=== PATIENT | female | born 1985 | race American Indian/Alaskan Native ===

== ENCOUNTER 2016-06-24 09:25 | Emergency (ER) | payer SELFPAY ==
[2016-06-24] MEDS ORDERED: NACL 0.9% 1000 ML 1,000 ML ONE ×2 (09:43→10:53)
[2016-06-24] MEDS ORDERED: NACL 0.9% 1000 ML 1,000 ML IV ONE (09:43)
[2016-06-24] MEDS ORDERED: NACL 0.9% 1000 ML IV ONE ×2 (10:18→12:32)
[2016-06-24 11:16] LABS: Bilirubin,Urine NEG (Negative); Blood,Urine SM (Negative); Ketones,Urine 20 mg/dL (Negative); Leukocyte Esterase,Urine TR (Negative); Nitrite,Urine NEG (Negative); Protein,Urine <15 mg/dL mg/dL (Negative); Urobilinogen,Urine < 2.0 mg/dL (<2.0)
[2016-06-24 11:27] LABS: Basophils % (Auto) 0.6 % (0.0-1.8); Eosinophils % (Auto) 1.1 % (0.0-4.3); Mean Corpuscular HGB Conc 30 % (30-34); Platelet Count 222 K/mm3 (140-440); Red Blood Count 5.82 M/mm3 (3.65-5.03); Red Cell Distribution Width 15.9 % (13.2-15.2); White Blood Count 11.3 K/mm3 (4.5-11.0)
[2016-06-24 11:31] LABS: Hematocrit 35.7 % (30.3-42.9); Hemoglobin 10.7 gm/dl (10.1-14.3)
[2016-06-24 11:32] LABS: Mean Corpuscular Hemoglobin 18 pg (28-32); Mean Corpuscular Volume 61 fl (79-97)
[2016-06-24 12:35] LABS: Anion Gap 20 mmol/L; BUN/Creatinine Ratio 28.57; Blood Urea Nitrogen 20 mg/dL (7-17); Calcium 8.4 mg/dL (8.4-10.2); Carbon Dioxide 20 mmol/L (22-30); Chloride 99.9 mmol/L (98-107); Glucose 446 mg/dL (65-100); Potassium 4.6 mmol/L (3.6-5.0); Sodium 135 mmol/L (137-145)
--- NOTE | 2016-06-24 13:05 | Emergency Department Report ---
HPI - General Chief Complaint: Hyperglycemia Time Seen by Provider: 06/24/16 10:04 - HPI HPI: Chief complaint: Elevated blood sugar HPI: Patient is a 30-year-old female with a previous history of insulin- dependent diabetes he states after losing a lot of weight and she was able to go off medications completely. Patient states over the last week she's had increased thirst and increased urination over the last 2 days her blood sugars have been reading high in the 200 and 300s. Today she states it read higher than 500. Patient denies chest pain or abdominal pain, nausea, vomiting, diarrhea, dysuria or fever. Mode of arrival: EMS Source: Patient Began: Over the last week Duration: See above Context: See above Quality: Dull headache Severity: Mild Improved with: Nothing Worsened with: Nothing Associated signs and symptoms: Generalized weakness ED Past Medical Hx - Past Medical History Previous Medical History?: Yes Hx Diabetes: Yes - Surgical History Additional Surgical History: Tubal ligation - Medications Home Medications: Home Medications Medication Instructions Recorded Confirmed Last Taken Type Insulin Glargine [Lantus] 15 units SQ QHS #1 vial 06/24/16 Unknown Rx Insulin Regular, Human [HumuLIN R] See Protocol IV ACHS #1 vial 06/24/16 Unknown Rx metFORMIN [Glucophage] 500 mg PO BID #60 tablet 06/24/16 Unknown Rx ED Review of Systems ROS: Stated complaint: HYPERGLYCEMIC Other details as noted in HPI ROS Constitutional: No fever ENT: No uri symptoms Cardiovascular: No chest pain Respiratory: No sob or cough GI: No nausea vomiting or diarrhea : No dysuria Skin: No rash Neuro: No focal weakness or numbness Psych: No depression Floyd/lymph: No edema Physical Exam - Physical Exam Vital Signs: Vital Signs 06/24/16 09:26 Temperature 98.1 F Pulse Rate 98 H Respiratory 16 Rate Blood Pressure 124/70 O2 Sat by Pulse 99 Oximetry Physical Exam: GENERAL: The patient is well-developed well-nourished . HEENT: Normocephalic. Atraumatic. Extraocular motions are intact. Patient has moist mucous membranes. NECK: Supple. No meningitic signs are noted. There is no adenopathy noted. CHEST/LUNGS: Clear to auscultation. There is no respiratory distress noted. HEART/CARDIOVASCULAR: Regular. There is no tachycardia. There is no gallop rub or murmur. ABDOMEN: Abdomen is soft, nontender. Patient has normal bowel sounds. There is no abdominal distention. SKIN: There is no rash. There is no edema. There is no diaphoresis. NEURO: The patient is awake, alert, and oriented. The patient is cooperative. The patient has no focal neurologic deficits. The patient has normal speech. MUSCULOSKELETAL: There is no tenderness or deformity. There is no limitation range of motion. There is no evidence of acute injury. ED Course Vital Signs 06/24/16 09:26 Temperature 98.1 F Pulse Rate 98 H Respiratory 16 Rate Blood Pressure 124/70 O2 Sat by Pulse 99 Oximetry - Reevaluation(s) Reevaluation #1: 06/24/16 10:18 Patient given IV fluids and will be given IV insulin. 06/24/16 14:28 Patient given a total of 3 L of normal saline and 10 units of regular insulin IV and improvement of her blood sugar. ED Medical Decision Making - Lab Data Result diagrams: 06/24/16 11:12 06/24/16 11:12 Laboratory Tests 06/24/16 06/24/16 11:12 12:30 VBG pH 7.337 POC Glucose 339 H Critical care attestation.: If time is entered above; I have spent that time in minutes in the direct care of this critically ill patient, excluding procedure time. ED Disposition Clinical Impression: Hyperglycemia Disposition: DISCHARGED TO HOME OR SELFCARE Is pt being admited?: No Does the pt Need Aspirin: No Condition: Stable Instructions: Diabetic Hyperglycemia (ED) Prescriptions: Insulin Glargine [Lantus] 15 units SQ QHS #1 vial Insulin Regular, Human [HumuLIN R] See Protocol IV ACHS #1 vial metFORMIN [Glucophage] 500 mg PO BID #60 tablet Referrals: KATIE MIRELES MD [Staff Physician] - 3-5 Days (Dr. Mireles is a primary care physician) KENIA JACOB MD [Staff Physician] - 3-5 Days (Dr. Jacob is a primary care physician.) Time of Disposition: 14:41
[2016-06-24] MEDS ORDERED: TYLENOL ONE (15:55)
[2016-06-24] MEDS ORDERED: TYLENOL PO ONE (16:10)
[2016-06-24 16:20] VITALS: BP 142/71
[2016-06-30 06:03] LABS: B-Hydroxybutyrate 1.4 mg/dL (0.2-2.8)
== END 2016-06-24 16:19 | disposition home or self-care (01) ==
LOC: ED 09:25
DX: E11.65 Type 2 diabetes mellitus with hyperglycemia (principal); Z79.4 Long term (current) use of insulin; Z98.51 Tubal ligation status
CPT/HCPCS: 36415; 80048; 81001; 81025; 82010; 82805; 82962; 85025; 96361; 96374; 96376; 99284; J7030; J1815

== ENCOUNTER 2016-07-03 14:32 | Emergency (ER) | payer SELFPAY ==
[2016-07-03] MEDS ORDERED: D50W (25GM) IV ONE ×2 (14:56→15:08)
[2016-07-03 15:34] LABS: Basophils % (Auto) 1.1 % (0.0-1.8); Eosinophils % (Auto) 2.1 % (0.0-4.3); Mean Corpuscular HGB Conc 30 % (30-34); Platelet Count 324 K/mm3 (140-440); Red Blood Count 6.14 M/mm3 (3.65-5.03); Red Cell Distribution Width 16.3 % (13.2-15.2); White Blood Count 10.4 K/mm3 (4.5-11.0)
[2016-07-03 15:37] LABS: Hematocrit 37.1 % (30.3-42.9); Hemoglobin 11.2 gm/dl (10.1-14.3); Mean Corpuscular Volume 60 fl (79-97)
[2016-07-03 15:38] LABS: Mean Corpuscular Hemoglobin 18 pg (28-32)
[2016-07-03 16:20] LABS: Anion Gap TNR mmol/L; BUN/Creatinine Ratio TNR; Blood Urea Nitrogen TNR mg/dL (7-17); Carbon Dioxide TNR mmol/L (22-30); Chloride TNR mmol/L (98-107); Glucose TNR mg/dL (65-100); Potassium TNR mmol/L (3.6-5.0); Sodium TNR mmol/L (137-145)
[2016-07-03 16:21] LABS: Calcium TNR mg/dL (8.4-10.2)
--- NOTE | 2016-07-03 18:04 | Emergency Department Report ---
HPI - General Chief Complaint: Hyperglycemia Time Seen by Provider: 07/03/16 17:49 - HPI HPI: This is a 30-year-old Afro-[place]alese female who presents to the emergency department with complaint of erratic blood sugar. The patient is a diabetic on both insulin and metformin. This morning she took her regular insulin at 20 units based on a sliding scale based on a fasting blood sugar of 265 and then ate breakfast. She did not have her metformin this morning. The patient presents with a blood sugar of 47 in triage and was given 1 amp of D50. Patient says that her blood sugar has been elevated over the past week. It does cause some blurry vision, polyuria and some intermittent frontal headaches. She is taking some ibuprofen in the past for her headache with some relief. She denies any chest pain, shortness of breath, back pain. She does not have a primary care doctor. No recent travel or sick contacts at home. ED Past Medical Hx - Past Medical History Previous Medical History?: Yes Hx Diabetes: Yes - Surgical History Past Surgical History?: Yes Additional Surgical History: Tubal ligation - Social History Smoking Status: Never Smoker Substance Use Type: Prescribed - Medications Home Medications: Home Medications Medication Instructions Recorded Confirmed Last Taken Type Insulin Regular, Human [HumuLIN R] See Protocol IV ACHS #1 vial 06/24/16 Unknown Rx metFORMIN [Glucophage] 500 mg PO BID #60 tablet 06/24/16 07/03/16 Unknown Rx ED Review of Systems ROS: Stated complaint: HYPERGLYCEMIA Other details as noted in HPI Comment: All other systems reviewed and negative Constitutional: denies: chills, fever Eyes: vision change. denies: eye pain ENT: denies: ear pain, throat pain Respiratory: denies: cough, shortness of breath, wheezing Cardiovascular: denies: chest pain, palpitations Endocrine: increased thirst, increased urine Gastrointestinal: denies: abdominal pain, nausea, diarrhea Genitourinary: frequency. denies: dysuria Musculoskeletal: denies: back pain, joint swelling, arthralgia Skin: denies: rash, lesions Neurological: headache. denies: weakness, numbness, paresthesias Physical Exam - Physical Exam Vital Signs: Vital Signs 07/03/16 14:35 Temperature 97.5 F L Pulse Rate 80 Respiratory 18 Rate Blood Pressure 138/86 O2 Sat by Pulse 100 Oximetry Physical Exam: GENERAL: The patient is well-developed well-nourished. HEENT: Normocephalic. Atraumatic. Extraocular motions are intact. Patient has moist mucous membranes. Pupils equal reactive to light bilaterally. No nystagmus. Oropharynx clear. Visual acuity: OD 20/100, OS 20/200. NECK: Supple. Trachea is midline. CHEST/LUNGS: Clear to auscultation. There is no respiratory distress noted. HEART/CARDIOVASCULAR: Regular. There is no tachycardia. There is no gallop rub or murmur. ABDOMEN: Abdomen is soft, nontender. Patient has normal bowel sounds. There is no abdominal distention. SKIN: There is no rash. There is no edema. There is no diaphoresis. NEURO: The patient is awake, alert, and oriented. The patient is cooperative. The patient has no focal neurologic deficits. The patient has normal speech. Cranial nerves II through XII grossly intact. MUSCULOSKELETAL: There is no tenderness or deformity. There is no limitation range of motion. There is no evidence of acute injury. ED Course Vital Signs 07/03/16 14:35 Temperature 97.5 F L Pulse Rate 80 Respiratory 18 Rate Blood Pressure 138/86 O2 Sat by Pulse 100 Oximetry ED Medical Decision Making - Lab Data Result diagrams: 07/03/16 15:06 07/03/16 17:41 - EKG Data -: EKG Interpreted by In EKG shows normal: sinus rhythm, axis, intervals, QRS complexes, ST-T waves (T- wave inversions to the lateral leads) Rate: normal - EKG Data When compared to previous EKG there are: previous EKG unavailable Interpretation: other (T-wave inversions in lateral leads) - Radiology Data Radiology results: report reviewed CT of the head does not show any acute process including no hemorrhage, mass, shift, diffuse edema or skull fracture. - Medical Decision Making This is a 30-year-old female presents to the emergency department with complaint of uncontrolled and labile blood sugar. She's been having some polyuria, polydipsia and blurry vision. Patient was found to have hypoglycemia with a blood sugar of 47 through triage. She was given 1 amp of D50 and her metabolic panel showed a blood sugar of 69. Patient was given food to eat and upon reevaluation her blood sugars up to almost 200. The rest of the patient's labs are mostly unremarkable. However due to the patient's headache and blurry vision a CT of the head without contrast was done. This resulted as no acute process. Patient does not have any otherwise focal, motor or sensory deficits in her cranial nerves are intact. I attempted to do a funduscopic examination however the patient is not dilated and it is not ideal conditions and therefore the posterior optics were not seen including the optic disc. However I was able to speak with ophthalmology and the patient appears safe for discharge home but will follow-up tomorrow in the ophthalmology office for further evaluation. All this information was given to the patient and she has agreed that she will follow-up with the instructional technology facilitator tomorrow. She will return to the ER with any worsening of her symptoms or any acute distress. She understands that while her vision is decreased, that she should not be driving or operating any heavy machinery. Critical Care Time: No Critical care attestation.: If time is entered above; I have spent that time in minutes in the direct care of this critically ill patient, excluding procedure time. ED Disposition Clinical Impression: Hypoglycemia, Blurred vision Uncontrolled diabetes mellitus Qualifiers: Diabetes mellitus type: type 1 Diabetes mellitus complication status: with hypoglycemia Diabetes mellitus complication detail: without coma Qualified Code( s): E10.649 - Type 1 diabetes mellitus with hypoglycemia without coma Disposition: DISCHARGED TO HOME OR SELFCARE Is pt being admited?: No Condition: Stable Instructions: Diabetic Hypoglycemia (ED), Blurred Vision (ED) Additional Instructions: Please follow-up with the instructional technology facilitator, Dr. Silvio Esquivel, tomorrow without fail regarding your blurry vision. You can either show up as a walk-in starting at 8 AM or you can call the number to make an appointment. Make sure to tell them that Dr. Esquivel was contacted while you were in the emergency department and they should fit you in. Return to the emergency department with any worsening of your symptoms or any acute distress. Referrals: PRIMARY CARE, [Primary Care Provider] - 3-5 Days SILVIO ESQUIVEL MD [Staff Physician] - 3-5 Days [facility] [Outside] - 3-5 Days Forms: Work/School Release Form(ED) Time of Disposition: 21:34
[2016-07-03 18:18] LABS: Anion Gap 19 mmol/L; Blood Urea Nitrogen 16 mg/dL (7-17); Calcium 9.6 mg/dL (8.4-10.2); Carbon Dioxide 22 mmol/L (22-30); Chloride 100.8 mmol/L (98-107); Glucose 69 mg/dL (65-100); Potassium 3.7 mmol/L (3.6-5.0); Sodium 138 mmol/L (137-145)
[2016-07-03 18:25] LABS: Bacteria,Urine 2+ /HPF (Negative); Mucus,Urine 1+ /HPF
[2016-07-03 18:26] LABS: Bilirubin,Urine NEG (Negative); Blood,Urine MOD (Negative); Ketones,Urine NEG (Negative); Leukocyte Esterase,Urine TR (Negative); Nitrite,Urine NEG (Negative); Protein,Urine <15 mg/dL mg/dL (Negative); Urobilinogen,Urine < 2.0 mg/dL (<2.0)
[2016-07-03 19:54] VITALS: BP 109/61
--- NOTE | 2016-07-03 20:46 | Cat Scan Report ---
FINAL REPORT PROCEDURE: CT HEAD/BRAIN WO CON TECHNIQUE: Computerized tomography of the head was performed without contrast material. HISTORY: ISSA, blurry vision COMPARISON: No prior studies are available for comparison. FINDINGS: Mild rounded mucosal thickening is seen in the maxillary sinuses. Mastoid air cells appear clear. No calvarial fracture is seen. Cerebral ventricles are normal in size. No CVA is seen. No acute intracranial hemorrhage or mass effect is seen. IMPRESSION: No intracranial abnormality is seen. Mild changes of chronic sinusitis are seen.
== END 2016-07-03 21:53 | disposition home or self-care (01) ==
LOC: ED 14:32
DX: E10.649 Type 1 diabetes mellitus with hypoglycemia without coma (principal); H53.8 Other visual disturbances; Z98.51 Tubal ligation status; Z91.040 Latex allergy status
CPT/HCPCS: 36415; 70450; 80048; 81001; 82962; 85025; 93005; 93010; 96374